=== PATIENT | male | born 1960 | race African-American/Black ===

== ENCOUNTER 2017-05-29 09:40 | Emergency (ER) | payer MEDICAID ==
[~2017-05-29] VITALS: Ht 175.3 cm; Wt 63.5 kg
[2017-05-29] MEDS ORDERED: Famotidine 20 MG/ 2ML VIAL IVP ONE (09:45)
[2017-05-29] MEDS ORDERED: Acetaminophen 650 MG SUPP RECTAL ONE (09:45)
[2017-05-29] MEDS ORDERED: Ketorolac 30mg Inj IV ONE (09:45)
[2017-05-29] MEDS ORDERED: Morphine Sulfate 2mg/ml Inj IVP ONE (09:45)
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
[2017-05-29 10:23] LABS: APPEARANCE,URINE CLEAR; KETONES,URINE NEGATIVE (NEGATIVE); LEUKOCYTE ESTERASE ,URINE 1+ (NEGATIVE); NITRITE,URINE NEGATIVE (NEGATIVE); PH,URINE 8 (4.5-8.0); PROTEIN,URINE 1+ (NEGATIVE); UROBILINOGEN,URINE 1 MG/DL (0.0-1.0)
[2017-05-29 10:30] LABS: BACTERIA,URINE OCCASIONAL /HPF; SQUAMOUS EPITHELIAL CELL,UR OCCASIONAL /LPF (NONE/OCC); WBC,URINE 0-2 /HPF (0 - 0)
[2017-05-29] MEDS ORDERED: Metoclopramide 10mg/2ml Inj IVP ONE (10:30)
[2017-05-29] MEDS ORDERED: HYDROmorphone 1mg/ml Carpuject IVP ONE (10:30)
[2017-05-29 10:38] LABS: MEAN CORPUSCULAR HEMOGLOBIN 32.9 PG (27.0-31.0); MEAN CORPUSCULAR HGB CONC 31.8 G/DL (32.0-36.0); MEAN CORPUSCULAR VOLUME 104 FL (80-99); MEAN PLATELET VOLUME 5.1 FL (6.5-10.1); PLATELET COUNT 370 K/UL (150-450); RED BLOOD COUNT 2.42 M/UL (4.70-6.10); RED CELL DISTRIBUTION WIDTH 11.7 % (11.6-14.8); WHITE BLOOD COUNT 11.7 K/UL (4.8-10.8)
[2017-05-29 10:42] LABS: PROTHROMBIN TIME 10.9 SEC (9.30-11.50)
[2017-05-29 10:47] LABS: ALANINE AMINOTRANSFERASE 6 U/L (3-41); ALBUMIN/GLOBULIN RATIO 0.7 (1.0-2.7); ASPARTATE AMINO TRANSFERASE 12 U/L (5-40); CARBON DIOXIDE 20 mEQ/L (20-30); CHLORIDE 111 mEQ/L (98-107); CREATININE 0.4 mg/dL (0.7-1.2); GLOMERULAR FILTRATION RATE > 60 mL/min (>60); HEMOLYSIS 2; LIPASE 18 U/L (< 60); SODIUM 141 mEQ/L (135-145); TOTAL PROTEIN 4.8 g/dL (6.6-8.7); TROPONIN I < 0.30 ng/mL (<=0.30)
[2017-05-29 10:52] LABS: ANION GAP 10 (5-15)
[2017-05-29 10:56] LABS: CALCIUM 5.7 mg/dL (8.6-10.2); POTASSIUM 2.5 mEQ/L (3.4-4.9)
[2017-05-29 11:00] LABS: BAND NEUTROPHILS % (MANUAL) 0 % (0-8); BASOPHILS % (MANUAL) 0 % (0-2); EOSINOPHILS % (MANUAL) 0 % (0-3); LYMPHOCYTES % (MANUAL) 6 % (20-45); NEUTROPHILS % (MANUAL) 92 % (45-75); PLATELET ESTIMATE ADEQUATE; PLATELET MORPHOLOGY NORMAL; TOTAL CELLS COUNTED 100
[2017-05-29 11:15] VITALS: BP 219/101
[2017-05-29] MEDS ORDERED: Cefepime HCl 1 GM in D5W 55 ML IVPB ONE (11:15)
[2017-05-29] MEDS ORDERED: metroNIDAZOLE 500mg 100 ML IVPB ONE (11:15)
[2017-05-29] MEDS ORDERED: Cefepime 1gm vial ONE (11:28)
[2017-05-29] MEDS ORDERED: Metoprolol 5mg/5ml Inj IVP STA (12:39)
--- NOTE | 2017-05-29 12:50 | Diagnostic Imaging Report ---
Indication: COUGH Technique: One view of the chest Comparison: none Findings: There is some atelectasis at the left lung base. There is equivocal mild interstitial prominence are there is central bronchial wall thickening. Heart size is upper limits normal. There is mild thoracolumbar scoliotic deformity Impression: Left basilar atelectasis Equivocal mild interstitial disease, acuity indeterminate if real
[2017-05-29 12:55] VITALS: BP 232/97
[2017-05-29] MEDS: Metoprolol 5mg/5ml Inj IVP SCH ×2 (14:08→14:21)
[2017-05-29] MEDS ORDERED: Hydromorphone 0.5mg/0.5ml inj IVP ONE (14:15)
--- NOTE | 2017-05-29 14:28 | Diagnostic Imaging Report ---
Clinical Indication: Abdominal pain left lower quadrant Technique: Patient given oral contrast. IV administration nonionic contrast. Venous phase spiral acquisition obtained through the abdomen and pelvis. Multiplanar reconstructions were generated. Total dose length product 577 mGycm. CTDIvol(s) : mGy. Dose reduction achieved using automated exposure control Comparison: None Findings: There is a nondisplaced fracture the posterior left eighth rib. No other fractures are demonstrated. There are dependent atelectatic changes at both lung bases. There is diffuse edema of the subcutaneous, abdominal, and retroperitoneal fat. A small amount of free fluid is seen within the pelvis. There is some ascites fluid over the dome of the liver as well under the dome of the left hemidiaphragm. The soft tissue edema somewhat limits evaluation, as it decreases the inherent soft tissue contrast. There is colonic diverticulosis. No definite evidence of diverticulitis. There is considerable focal wall thickening of the sigmoid colon. Although not deemed likely, the appearance does raise the possibility of a colocolonic intussusception in this area, as there appears to be central dense lumen, concentric less dense rim, surrounded by a more peripheral denser concentric area. There is no proximal dilatation. Immediately inferior to the sigmoid, there is a of the bowel which is unopacified, projects just above the opening of the inguinal canal. This appears to be separate from the sigmoid colon, probably represents a borderline indirect inguinal hernia with the edge of the small bowel protruding into it. No small bowel distention. Contrast is seen throughout almost entirely the small bowel,, and a small amount is seen distally in the colon as well. The appendix is not definitely identified, but no findings to suggest acute appendicitis are evident. There is no free intraperitoneal air The liver is unremarkable. The gallbladder contains a gallstone. No biliary ductal dilatation. The pancreas, spleen, adrenals, kidneys are unremarkable. No retroperitoneal or mesenteric mass or adenopathy. No pelvic mass or adenopathy. Impression: Wall thickening of the sigmoid colon. Probably on the basis of focal enteritis or, less likely, diverticulitis. However, a questionable concentric ring appearance raises the a possibility of a focal colocolic intussusception, which would be a very unusual finding. If real, this does not appear to be causing any bowel obstruction Borderline indirect left inguinal hernia, may contain the edge of a knuckle of small bowel, appears to be nonobstructive if real Acute nondisplaced left posterior eighth rib fracture Anasarca, with edema of the subcutaneous, abdominal, retroperitoneal fat and free fluid within the pelvis and upper abdomen Diverticulosis Cholelithiasis Basilar pulmonary parenchymal atelectatic changes. Findings discussed by phone with Dr. Ball in the emergency room at the time of interpretation The CT scanner at [facility] is accredited by the [employer] and the scans are performed using protocols designed to limit radiation exposure to as low as reasonably achievable to attain images of sufficient resolution adequate for diagnostic evaluation.
[2017-05-29 15:00] VITALS: BP 219/103
[2017-05-29 16:06] VITALS: BP 176/75
[2017-05-29 17:36] VITALS: BP 168/77
[2017-05-29 17:38] VITALS: BP 168/77
--- NOTE | 2017-05-30 16:50 | Cardiology Report ---
APPROVED REPORT EKG Measurement Heart [id number] Normal sinus rhythm Nonspecific ST and T wave abnormality Abnormal ECG
== END 2017-05-29 17:43 | disposition short-term general hospital (02) ==
LOC: EDBD 09:40 → EMR 09:58
DX: R10.32 Left lower quadrant pain (principal); E87.6 Hypokalemia; E83.51 Hypocalcemia; I16.0 Hypertensive urgency; J98.11 Atelectasis; K40.90 Unilateral inguinal hernia, without obstruction or gangrene, not specified as recurrent; S22.32XA Fracture of one rib, left side, initial encounter for closed fracture; R60.1 Generalized edema; K57.90 Diverticulosis of intestine, part unspecified, without perforation or abscess without bleeding; K80.20 Calculus of gallbladder without cholecystitis without obstruction; F17.200 Nicotine dependence, unspecified, uncomplicated; I10 Essential (primary) hypertension; X58.XXXA Exposure to other specified factors, initial encounter; Y93.9 Activity, unspecified; Y92.9 Unspecified place or not applicable
CPT/HCPCS: 36415; 71010; 74177; 80053; 80300; 81003; 82330; 82550; 83605; 83690; 84484; 85007; 85025; 85610; 85730; 86850; 86900; 86901; 87040; 93005; 96360; 96361; 96375; 99285; J0360; J0692; J1170; J1885; J2270; J2405; J2765; J3480; Q9967; S0028

== ENCOUNTER → 2017-11-27 | Emergency (ER) | payer MEDICAID ==
[~2017-11-27] VITALS: Ht 175.3 cm; Wt 63.5 kg
[2017-11-27 17:20] VITALS: BP 153/106
--- NOTE | 2017-11-28 13:58 | Emergency Room Report ---
History of Present Illness General Chief Complaint: General Complaint Source: EMS Present Illness HPI Patient left without being seen. Allergies: Coded Allergies: No Known Allergies (Unverified , 05/29/17) Nursing Documentation-[facility] Past Medical History: No History, Except For Hx Hypertension: Yes Hx Gastrointestinal Problems: Yes - diverticulitis, colostomy Physical Exam Vital Signs Date Time Temp Pulse Resp B/P (MAP) Pulse Ox O2 Delivery O2 Flow Rate FiO2 11/27/17 17:20 98.1 98 18 153/106 97 Room Air 98.1 Medical Decision Making PA Attestation Dr. Pride is my supervising Physician whom patient management has been discussed with. Diagnostic Impression: Primary Impression: Patient left without being seen ER Course Patient left without being seen. Last Vital Signs Date Time Temp Pulse Resp B/P (MAP) Pulse Ox O2 Delivery O2 Flow Rate FiO2 11/27/17 17:20 98.1 98 18 153/106 97 Room Air 98.1 Disposition: ELOPED Referrals: [facility],REFERR[facility] (PCP) Additional Instructions: Patient left without being seen. Dagoberto Treadwell Nov 28, 2017 13:58
== END | disposition left against medical advice (07) ==
LOC: EDUNIT# 17:19 → EDBD 17:23 → EMR 17:55
DX: Z43.3 Encounter for attention to colostomy (principal); Z53.21 Procedure and treatment not carried out due to patient leaving prior to being seen by health care provider
CPT/HCPCS: 99281